=== PATIENT | female | born 1950 | race Caucasian/White ===

== ENCOUNTER → 2018-09-03 15:10 | Outpatient (CLI) | payer MEDICARE, OTHER, SELFPAY ==
--- NOTE | 2018-09-03 15:19 | BI_ITS ---
MAMMOGRAPHY - BILATERAL SCREENING REASON FOR EXAM: Female, 68 years old. Routine annual screening examination. PERTINENT HISTORY: Aunt with breast cancer. TECHNIQUE: Digital bilateral breast niecy (3D mammographic acquisition) in the CC and MLO projections. 2-D mediolateral oblique (MLO) and craniocaudad (CC) views of both breasts were obtained. CAD: Full Field Digital Mammography with Computer Added Detection was performed. COMPARISON: Comparison is made with prior study dated June 16, 2017 and June 06, 2016. FINDINGS: Breast Composition: There are scattered areas of fibroglandular density. There are no dominant masses or suspicious calcifications. Stable benign-appearing bilateral extrarenal lymph nodes. No other significant abnormalities are identified. There has been no significant change since the prior study. BI/SCREENING MAMM (CAD), BILAT IMPRESSION: Stable bilateral screening mammogram. Yearly follow-up mammogram recommended. (A) ASSESSMENT CATEGORY: BIRADS Category 2: Benign. A letter regarding these results will be sent to the patient by the facility within 30 days. Approximately 10% of breast cancers are not detected by mammography. A normal mammogram should not delay biopsy of a clinically suspicious abnormality. [id number] Electronically Signed: Richard Huffman MD at 8:49 EST Tel [phone], Service support ,
--- OUTSIDE RECORDS SUMMARY | 2018-12-06 07:59 | XMS RPT_ITS ---
:1950 Author Organization [facility] Care Team Providers Name Role Phone CLINIC, BRISA SCHREIBER Attending Unavailable Madie Pearson Primary Care Unavailable PROBLEMS PROBLEMS No Problem Records FoundPROCEDURES PROCEDURES No Procedure Records FoundRESULTS RESULTS SCREENING MAMM (CAD), Observed: 09/03/2018 Status: F Source: [place] BIL 3:20 PM [facility] REPOSITORY [facility] Imaging Services [address] [place] [address] SCREENING MAMM (CAD), BILAT MR#: [id number] Acct: [id number] Name: YAMILET POWERS Rep #: [id number] : 1950 F 68 From: Richard Huffman MD PCP: Madie Pearson Status: REG CLI Study: SCREENING MAMM (CAD), BILAT Date of Exam: 09/03/18 Exam# [id number] Ordering Dr: Brisa Alcaraz MAMMOGRAPHY - BILATERAL SCREENING REASON FOR EXAM: Female, 68 years old. Routine annual screening examination. PERTINENT HISTORY: Aunt with breast cancer. TECHNIQUE: Digital bilateral breast niecy (3D mammographic acquisition) in the CC and MLO projections. 2-D mediolateral oblique (MLO) and craniocaudad (CC) views of both breasts were obtained. CAD: Full Field Digital Mammography with Computer Added Detection was performed. COMPARISON: Comparison is made with prior study dated June 16, 2017 and June 06, 2016. FINDINGS: Breast Composition: There are scattered areas of fibroglandular density. There are no dominant masses or suspicious calcifications. Stable benign-appearing bilateral extrarenal lymph nodes. No other significant abnormalities are identified. There has been no significant change since the prior study. BI/SCREENING MAMM (CAD), BILAT IMPRESSION: Stable bilateral screening mammogram. Yearly follow-up mammogram recommended. (A) ASSESSMENT CATEGORY: BIRADS Category 2: Benign. A letter regarding these results will be sent to the patient by the facility within 30 days. Approximately 10% of breast cancers are not detected by mammography. A normal mammogram should not delay biopsy of a clinically suspicious abnormality. [id number] Electronically Signed: Richard Huffman MD at 8:49 EST Tel [phone], Service support , CC: Madie GALAN; BRISA [facility]AMS [facility] [employer]eguard Specialist: Signed ALLERGIES ALLERGIES DATE TYPE / CODE NAME / CODE REACTION SEVERITY SOURCE 05/11/2016 Drug oxycodone Shortness of Unknown [place] Allergy/416 HCl/[id number](RX breath [id number]) Repository 05/11/2016 Drug naproxen Other Unknown [place] Allergy/416 sodium/[id number] Community [id number]([facility] ED CT) Repository 05/11/2016 Drug cetirizine Rash Unknown [place] Allergy/416 HCl/[id number](RX [facility] Repository 05/11/2016 Drug acetaminophen/F00 Shortness of Unknown [place] Allergy/505 4040699(RXNORM) breath Community 684958([facility] ED CT) Repository 05/11/2016 Drug aspartame/[id number] Hives SV [place] Allergy/416 605(RXNORM) Community 292270([facility] ED CT) Repository ENCOUNTERS ENCOUNTERS ADMIT/DISCHARGE ACCOUNT ADMITTING ENCOUNTER LOCATION SOURCE NUMBER CLASS 09/03/2018 [id number] Ambulatory [place] 3 [facility] ing:OPBI Repository PAYERS PAYERS ENCOUNTER GUARANTOR PAYER SUBSCRIBER SOURCE 09/03/2018 YAMILET Quach Primary YAMILET Damon [id number] Insurance:MEDICARE BELLOMYDOB: Community [id number] [address]Cjj: Number: Repository [id number] () Date:2018-07-18 09/03/2018 Secondary YAMILET Damon Insurance:AETNA SR BELLOMYDOB: Community SUPPLEMENT [facility] [id number] Hospital Number: Repository [id number] Date:4755-01-11[facility] SUPPLEMENT [address], [place] [address]GN: 09/03/2018 Tertiary NOT GIVENBRIAN Nelson Insurance:SELF PAY [facility] Number: Effective Repository Date:2018-07-18
== END ==
PROVIDERS: Family Provider Nurse Practitioner Family; PCP Nurse Practitioner Family
DX: Z12.31 Encounter for screening mammogram for malignant neoplasm of breast (principal)
CPT/HCPCS: 77063; 77067

== ENCOUNTER → 2019-09-23 16:05 | Outpatient (CLI) | payer MEDICARE, OTHER, SELFPAY ==
[2016-05-11 17:51] VITALS: BMI 43.3
--- NOTE | 2019-09-23 16:18 | RAD_ITS ---
STUDY: X-RAY CHEST REASON FOR EXAM: Female, 69 years old. Productive cough. Sinus congestion and shortness of breath for 4 days. TECHNIQUE: PA and lateral views of the chest. COMPARISON: August 26, 2014. FINDINGS: The lungs are clear and expanded. There is no demonstrated pleural abnormality. Normal size heart. Normal mediastinum and polo. Normal visualized pulmonary arteries. Normal visualized aortic arch and descending thoracic aorta. There are diffuse degenerative changes of the visualized thoracic spine. There is degenerative osteoarthritis of the bilateral shoulders. There is no demonstrated abnormality of the visualized soft tissue structures of the upper abdomen. RAD/Chest PA and Lateral IMPRESSION: Degenerative changes, as described above. No demonstrated acute cardiopulmonary process. There is no major interval change. Electronically Signed: Jeffrey Zaidi DO at 17:03 EST Tel [phone], Service support ,
== END ==
PROVIDERS: Family Provider Nurse Practitioner Family; PCP Nurse Practitioner Family; Referring Provider Nurse Practitioner Family; Visit Provider Nurse Practitioner Family
DX: R05 Cough (principal)
CPT/HCPCS: 71046

== ENCOUNTER → 2019-10-07 12:39 | Outpatient (CLI) | payer MEDICARE, OTHER, SELFPAY ==
--- NOTE | 2019-10-07 12:43 | RAD_ITS ---
STUDY: SWALLOWING STUDY REASON FOR EXAM: Female, 69 years old. DYSPHAGIA. 1501 IMAGES TECHNIQUE: The examination was performed with Speech Pathology in attendance. Under fluoroscopic observation, the patient ingested thin barium, thick barium, barium pudding, and barium coated cracker. FLUOROSCOPY TIME: 1:46 minutes/seconds. RADIOLOGIST INVOLVEMENT: Radiologist was present and providing direct supervision. COMPARISON: None. FINDINGS: The following was observed during swallowing of the various mixtures of barium: There is hypertrophy of the cricopharyngeus muscle. Thin Barium: There was no evidence of aspiration or laryngeal penetration. Barium Pudding: There was no evidence of aspiration or laryngeal penetration. Barium Coated Cracker: There was no evidence of aspiration or laryngeal penetration. RAD/Swallowing Function w/Video IMPRESSION: Normal tailored barium swallow study. No evidence of increased risk for aspiration. Hypertrophy of the cricopharyngeus muscle. The swallow study findings were discussed with the patient by the speech pathologist at the conclusion of the examination. Please see speech pathology report for more information and recommendations. Electronically Signed: Richard Huffman, at 13:26 EST , Service support ,
--- NOTE | 2019-10-07 12:45 | SP.MBSS_ITS ---
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 MEDICAL HISTORY: Cerebrovascular attack / small vessel infarct of the right subcortical territory, type II diabetes mellitus, dyslipidemia, hypertension, hypothyroidism, obesity. PREVIOUS MODIFIED BARIUM SWALLOW STUDY: None ADDITIONAL OBJECTIVE ASSESSMENT RESULTS: 09/23/2019 chest x-ray revealed degenerative changes; no demonstrated acute cardiopulmonary process; no major interval change. ASSESSMENT PARAMETERS: The Patient participated in a Modified Barium Swallow (MBS) study on 10/07/2019. Dr. Huffman was the radiologist present for this evaluation. This study was recorded in the lateral view and images were sent to PACs for storage. Scoring was completed through each trial using the 8-point Penetration-Aspiration Scale (PAS) and summarized via the Modified Barium Swallow Impairment Profile (MBSImP) and the Bolus Residue Scale (BRS), with severity scoring through the Dysphagia Severity Rating Scale (DSRS) and the Swallowing Performance Scale (SPS), and recommended diet textures through the International Dysphagia Diet Standardisation Initiative (IDDSI). RESULTS OF THE EVALUATION: The Patient presents with mastication and deglutition abilities found to be grossly within functional limits (DSRS: 1; SPS: 2) OBJECTIVE ASSESSMENT OF SWALLOW FUNCTION (QUANTITATIVE ? PER TRIAL): PENETRATION / ASPIRATION SCALE (SCHNEIDER): 1 = does not enter airway 2 = enters airway/above vocal folds/ejected 3 = enters airway/above vocal folds/not ejected 4 = enters airway/contacts vocal folds/ejected 5 = enters airway/contacts vocal folds/not ejected 6 = enters airway/below vocal folds/ejected 7 = enters airway/below vocal folds/not ejected despite effort 8 = enters airway/below vocal folds/no effort PENETRATION / ASPIRATION SCALE (SCORE): Thin liquid - 5 mL tsp.: 1 Thin liquids via cup (single sip): 1 Thin liquids via cup (single sip): 1 Thin liquids via cup (single sip): 1 Thin liquids via straw (sequential swallows): 1 Pudding via spoon: 1 Regular textured cookie: 1 Thin liquids via straw (single sip): 1 OBJECTIVE ASSESSMENT OF SWALLOW FUNCTION (QUANTITATIVE ? AGGREGATE): MODIFIED BARIUM SWALLOW IMPAIRMENT PROFILE (MBSImP) LABIAL SEAL: 0 (of 4) no labial escape TONGUE CONTROL: 2 (of 3) posterior escape < 50% BOLUS PREPARATION / MASTICATION: 0 (of 3) timely and efficient BOLUS TRANSPORT / LINGUAL MOTION: 3 (of 4) repetitive / disorganized motion ORAL RESIDUE: 2 (of 4) residue collection on oral structures INITIATION OF PHARYNGEAL SWALLOW: 1 (of 4) valleculae SOFT PALATE ELEVATION: 0 (of 4) no bolus between soft palate & pharyngeal wall LARYNGEAL ELEVATION: 0 (of 3) complete superior movement / approximation ANTERIOR HYOID EXCURSION: 0 (of 2) complete movement EPIGLOTTIC MOVEMENT: 0 (of 2) complete inversion LARYNGEAL VESTIBULE CLOSURE: 0 (of 2) complete closure PHARYNGEAL STRIPPING WAVE: 0 (of 2) present / complete PE SEGMENT OPENIN (of 3) complete distension / duration; no obstruction TONGUE BASE RETRACTION: 1 (of 4) trace column of contrast PHARYNGEAL RESIDUE: 1 (of 4) trace residue ESOPHAGEAL BOLUS CLEARANCE: could not view BOLUS RESIDUE SCALE (BRS): 1 (of 6) no residue OBJECTIVE ASSESSMENT OF SWALLOW FUNCTION (SEVERITY GRADING): DYSPHAGIA SEVERITY RATING SCALE (DSRS): 1 (within functional limits) SWALLOWING PERFORMANCE SCALE (SPS): 2 (within functional limits) OBJECTIVE ASSESSMENT OF SWALLOW FUNCTION (QUALITATIVE): ORAL PREPARATORY PHASE: sufficient mastication rate and quality; sufficient anterior oral containment during oral manipulation; preserved management of breathing / bolus formation. ORAL TRANSITIONAL PHASE: brief discoordinated lingual movements (undulations) paired with posterior bolus loss of less than 50% during second to last trial, possibly influenced by the Patients distaste for liquid barium; very mild intermittent oral phase swallow onset delay (no more than 2-3 seconds in length) without a functional impact noted under fluoroscopy; oral transitional phase otherwise within functional limits, with sufficient oral clearance and sufficient oral containment across remaining trials. PHARYNGEAL PHASE: no clinically significant findings suggestive of pharyngeal dyssynchrony; appropriate hyolaryngeal excursion and laryngeal vestibule closure / pressure; no signs of pharyngeal dysmotility; no signs of velopharyngeal impairments; no penetration / aspiration throughout trials. ESOPHAGEAL PHASE: no obvious esophageal phase abnormalities observed. 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 INTERVENTION RECOMMENDATIONS AND CONSIDERATIONS: The Patient presents with mastication and deglutition abilities found to be grossly within functional limits. No penetration or aspiration appreciated throughout consistencies trialed. No further skilled speech-language services warranted at this time targeting dysphagia. POST ASSESSMENT EDUCATION: Results and recommendations were discussed with the Patient immediately following MBS completion, with the Patient verbalizing understanding and agreement with all recommendations and education provided. The Patient was able to comprehend information presented upon review and express recommended intake precautions (seated at 90 degrees) to suggest high likelihood of compliance. Provided a brief overview of signs and symptoms of aspiration, with recommendations for the Patient to further discuss any further symptoms with the Patients primary care physician. DIET TEXTURE RECOMMENDATIONS: Will recommend a regular textured (IDDSI: 7), thin liquid diet (IDDSI: 0) diet RECOMMENDED COMPENSATORY STRATEGIES: Reduced bolus volume / rate of ingestion, seated upright at 90 degrees during PO intake, remain upright for 30-60 minutes post meal (GERD precaution) IMAGE COUNT: [id number] Darien Martinez M.A., CCC-BUSINESS TRAINER, CBIS MBSImP Certified, LSVT Certified [facility] Speech-Language Pathology [email or web address]
== END ==
PROVIDERS: Family Provider Nurse Practitioner Family; PCP Nurse Practitioner Family; Visit Provider Nurse Practitioner Family
DX: R13.10 Dysphagia, unspecified (principal)
CPT/HCPCS: 74230; 92611

== ENCOUNTER → 2020-09-08 16:40 | Outpatient (CLI) | payer MEDICARE, OTHER, SELFPAY ==
--- NOTE | 2020-09-08 16:43 | BI_ITS ---
MAMMOGRAPHY - BILATERAL SCREENING REASON FOR EXAM: Female, 70 years old. Routine annual screening examination. PERTINENT HISTORY: Aunt with breast cancer. TECHNIQUE: Digital bilateral breast halle (3D mammographic acquisition) in the CC and MLO projections. 2-D mediolateral oblique (MLO) and craniocaudad (CC) views of both breasts were obtained. CAD: Full Field Digital Mammography with Computer Added Detection was performed. COMPARISON: Comparison is made with prior study dated 09/03/2018 and 06/16/2017. FINDINGS: Breast Composition: The breasts are almost entirely fatty. There are no dominant masses or suspicious calcifications. Stable benign-appearing bilateral axillary lymph nodes. No other significant abnormalities are identified. There has been no significant change since the prior study. BI/SCREEN MAMM (CAD) W/HALLE BILAT IMPRESSION: Stable bilateral screening mammogram. Yearly follow-up mammogram recommended. (A) ASSESSMENT CATEGORY: BIRADS Category 2: Benign. A letter regarding these results will be sent to the patient by the facility within 30 days. Approximately 10% of breast cancers are not detected by mammography. A normal mammogram should not delay biopsy of a clinically suspicious abnormality. [id number] Electronically Signed: Richard Huffman, at 8:13 EST , Service support ,
== END ==
PROVIDERS: PCP Family Medicine; Referring Provider Family Medicine; Visit Provider Family Medicine
DX: Z12.31 Encounter for screening mammogram for malignant neoplasm of breast (principal); Z80.3 Family history of malignant neoplasm of breast
CPT/HCPCS: 77063; 77067

== ENCOUNTER → 2020-11-20 14:01 | Outpatient (CLI) | payer MEDICARE, OTHER, SELFPAY ==
--- NOTE | 2020-11-20 14:04 | CDU_ITS ---
Reason For Study: Retinal artery occlusion Rt. Velocities/BP Lt. Velocities/BP Prox CCA 93/20 cm/sec. Prox CCA 81.4/22.5 cm/sec. Mid CCA 86.5/21.3 cm/sec. Mid CCA 87.5/24.9 cm/sec. Dist CCA 86.5/23.9 cm/sec. Dist CCA 77.7/23.7 cm/sec. Prox ICA 80.9/18.8 cm/sec. Prox ICA 79.1/26.1 cm/sec. Mid ICA 87.6/33.5 cm/sec. Mid ICA 104.7/31.6 cm/sec. Dist ICA 112.6/33.6 cm/sec. Dist ICA 102.8/38.9 cm/sec. Rt. ICA/CCA = 1.3. Lt. ICA/CCA = 1.3. Prox ECA 139.4/18.8 cm/sec. Prox ECA 119.3/20.6 cm/sec. Rt. Vert. 67.9/16.3 cm/sec. Lt. Vert. 67.4/21.2 cm/sec. Right Extracranial There is homogeneous, smooth atherosclerotic plaque noted in the right common carotid artery. There is intimal thickening but no significant atherosclerotic plaque noted in the right internal carotid artery. There is intimal thickening but no significant atherosclerotic plaque noted in the right external carotid artery. Antegrade flow is noted in the right vertebral artery. Left Extracranial There is homogeneous, smooth atherosclerotic plaque noted in the left common carotid artery. There is homogeneous, smooth atherosclerotic plaque noted in the left internal carotid artery. There is intimal thickening but no significant atherosclerotic plaque noted in the left external carotid artery. Antegrade flow is noted in the left vertebral artery. Procedure Carotid Duplex [id number]. This is a Carotid Duplex examination using B-mode, color flow and specral Doppler. Exam performed in department. Interpretation Summary No significant atherosclerotic plaque or stenosis noted in the right internal carotid artery. Mild (<50%) stenosis left extracranial internal carotid. Flow within the vertebral arteries is antegrade bilaterally. Ordering Physician: Gerber Hurd Referring Physician: Suleiman Kidd Performed By: Dulce Rivera RVT
== END ==
PROVIDERS: PCP Family Medicine; Referring Provider Ophthalmology; Visit Provider Ophthalmology
DX: H34.211 Partial retinal artery occlusion, right eye (principal)
CPT/HCPCS: 93880

== ENCOUNTER 2021-05-11 14:56 | Observation (INO) | payer MEDICARE, OTHER, SELFPAY ==
[2021-05-11] VITALS (13 sets, daily range): BP systolic 118–201; BP diastolic 71–90; PULSE 13–98; RESP 12–20; TEMP 35.8–36.8; O2SAT 94–97; BMI 46.4; BMI 46.7; BMI 45.8
--- NOTE | 2021-05-11 15:09 | EKG12_ITS ---
Test Reason : NEURO Blood Pressure : / mmHG Vent. Rate : 093 BPM Atrial Rate : 093 BPM P-R Int : 158 ms QRS Dur : 078 ms QT Int : 344 ms P-R-T Axes : 025 009 006 degrees QTc Int : 427 ms Normal sinus rhythm Nonspecific T wave abnormality Abnormal ECG Confirmed by VIN MOYA, MARTHA ([id number]), manuscript editor ALEXEY MADRID ([id number]) on 05/13/2021 10:00:14 AM Referred By: KATARZYNA Confirmed By:MARTHA BANUELOS MD
--- NOTE | 2021-05-11 15:09 | RAD_ITS ---
History: Neuro deficit, acute, stroke suspected EXAMINATION/TECHNIQUE: XR Chest 1 View: Portable COMPARISON: September 23, 2019 FINDINGS: LINES/DEVICES: None. LUNGS: No consolidation, edema or effusion. No pneumothorax. MEDIASTINUM AND CARDIOVASCULAR STRUCTURES: Cardiac silhouette not enlarged. Central airways and mediastinal contour are unremarkable. BONES AND SOFT TISSUES: Unremarkable. RAD/Chest 1 View IMPRESSION: No radiographic evidence of acute cardiopulmonary disease. No interval change. at 1650 Reported and signed by: Tree Townsend MD Electronically Signed: Tree Townsend MD at 16:49 EDT Tel , Service support ,
--- NOTE | 2021-05-11 15:09 | CT_ITS ---
STUDY: CT HEAD STROKE PROTOCOL W/O CONTRAST INJECTION REASON FOR EXAM: Female, 70 years old. Neuro deficit, acute, stroke suspected RADIATION DOSAGE (If Supplied By Facility): CTDIvol = ( 44.99 ) mGy, DLP = ( 779.24 ) mGycm TECHNIQUE: Transaxial CT imaging of the brain was performed without administration of intravenous contrast material. Individualized dose optimization techniques were used for this CT. COMPARISON: No relevant priors. FINDINGS: Normal soft tissue structures. Normal calvarium. There is mild cerebral atrophy with widening of the extra-axial spaces and ventricular dilatation. Normal white matter tracts of the cerebral hemispheres. Tiny lacuna is seen in the posterior limb of the right internal capsule. Normal brainstem. Normal cerebellum. There is no intracranial hemorrhage. There are no findings of an acute ischemic infarction. Atherosclerotic calcification of the cavernous portions of the internal carotid arteries bilaterally. Normal visualized paranasal sinuses. CT/STROKE Brain/Head without Cont IMPRESSION: Chronic involutional changes of the brain. Tiny lacuna in the posterior limb of the right internal capsule. N.B. : The above Results were Read Back by Richard Huffman MD to Jarod Solomon and understanding confirmed on 05/11/2021 15:31:06 (ET). Electronically Signed: Richard Huffman MD at 15:32 EDT , Service support ,
--- NOTE | 2021-05-11 15:10 | EDS_ITS ---
HPI History of Present Illness Chief Complaint: Neuro S/Sx Informant: patient Onset/Context/Timing Onset: Yesterday (2200 in evening) Context: Sudden Onset (while at rest) Timing: Continuous Quality and Location: Positive for Right Facial Droop; Negative for Slurred Speech, Expressive Aphasia, Receptive Aphasia and Difficulty with Ambulation Current Severity: Moderate Maximum Severity: Moderate Worsened by: Nothing Relieved by: Nothing Associated Symptoms Associated Symptoms: Negative for Headache, Nausea, Vomiting and Chest Pain Narrative Narrative: Patient had a history of a left-sided stroke in the past, currently having a right-sided facial droop, it started last night she presents around 1500 in the afternoon. She takes Xarelto. Stroke was several years ago. It was an ischemic stroke. She denies any recent illness or injury. [facility] Medical History (Updated 05/11/21 @ 17:[address] Jarod Solomon MD) acute on chronic anemia CVA (cerebral infarction) DM2 (diabetes mellitus, type 2) Dyslipidemia HTN (hypertension) Hypothyroidism Obesity Home Medications loratadine [Allergy Relief (loratadine)] 10 mg PO DAILY 08/26/14 [History Last Taken 05/10/21] amlodipine 10 mg PO DAILY 05/11/21 [History Last Taken 05/11/21] aspirin 81 mg PO DAILY@0800 05/11/21 [History Last Taken 05/11/21] atenolol 50 mg PO QHS 05/11/21 [History Last Taken 05/10/21] atorvastatin 20 mg PO DAILY 05/11/21 [History Last Taken 05/11/21] insulin aspart U-100 [Novolog Flexpen U-100 Insulin] 15 unit SUBCUT TID 05/11/21 [History Last Taken 05/11/21] insulin glargine [Basaglar KwikPen U-100 Insulin] 88 unit SUBCUT QHS 05/11/21 [History Last Taken 05/10/21] levothyroxine 50 mcg PO DAILY 05/11/21 [History Last Taken 05/11/21] losartan-hydrochlorothiazide 1 tab PO DAILY 05/11/21 [History Last Taken 0 05/11/21] Allergy/AdvReac Type Severity Reaction Status Date / Time aspartame Allergy Severe Hives Verified 05/11/16 17:50 [From Nutrasweet Aspartame] acetaminophen [From Percocet] Allergy Shortness Verified 05/11/16 17:50 of breath cetirizine HCl [From Zyrtec] Allergy Rash Verified 05/11/16 17:50 oxycodone HCl [From Percocet] Allergy Shortness Verified 05/11/16 17:50 of breath naproxen sodium AdvReac Other Verified 05/11/16 17:50 [From Anaprox] Surgical History Status post total hip replacement, right Social History Smoking Status: Never smoker ROS ROS ED Constitutional Constitutional ED: Denies chills or fever(s) Eyes Eyes: Denies change in vision or diplopia ENT ENT ED: Denies rhinorrhea or sore throat Cardiovascular Cardiovascular: Denies chest pain or palpitations Respiratory/Chest Respiratory/Chest: Denies cough or dyspnea Gastrointestinal Gastrointestinal: Denies abdominal pain, diarrhea, nausea or vomiting Genitourinary Genitourinary ED: Denies dysuria or hematuria Musculoskeletal Musculoskeletal: Denies back pain or neck pain Integumentary Denies abscess or rash Neurologic Neurologic: Reports other Details: Facial droop. Pre-existing deficit is a little slower on the left. ; Denies headache(s) or paresthesias Psychiatric Psychiatric: Denies anxiety or suicidal thoughts EXAM Physical Exam Const Vital Signs: 05/11/21 14:57 05/11/21 15:09 05/11/21 15:14 Temperature 96.4 F L 98 F Temperature Source Temporal Temporal Pulse Rate 13 L 97 98 Respiratory Rate 20 H 12 13 Blood Pressure 195/90 H 201/74 H 195/90 H Blood Pressure Mean 125 116 125 Pulse Ox 96 94 97 Oxygen Delivery Method Room Air Room Air Room Air 05/11/21 15:20 05/11/21 15:39 05/11/21 16:09 Temperature Temperature Source Pulse Rate 92 84 Respiratory Rate 19 H 16 Blood Pressure 146/71 H 143/73 H Blood Pressure Mean 96 96 Pulse Ox 94 Oxygen Delivery Method Room Air Room Air Room Air 05/11/21 16:30 05/11/21 16:33 Temperature Temperature Source Pulse Rate 88 80 Respiratory Rate 19 H 16 Blood Pressure 118/75 118/75 Blood Pressure Mean 89 89 Pulse Ox 95 Oxygen Delivery Method Room Air Positive well nourished, well developed and obese General Appearance ED: well developed and NAD Nutritional Appearance: obese HEENT Reports moist mucous membranes HEENT Narrative: Right facial droop.mild left ptosis. Symmetric elevation of eyebrows and forehead. normocephalic and atraumatic Eyes PERRL and EOMs intact bilaterally Neck full ROM and supple Resp normal respiratory effort and clear to auscultation bilaterally Cardio regular rate, regular rhythm and no murmurs GI non-tender and non-distended Auscultation: normoactive bowel sounds Palpation: soft Back/Spine no CVA tenderness General Back: other FROM Extremity normal to inspection General Extremety ED: Negative for edema, pulses abnormal or tenderness General Extremity: Negative for edema or pulses abnormal Neuro oriented x3, CN's II-XII intact bilaterally and no sensory deficits noted Neuro Narrative: Normal iggryr-wp-pcti and yyce-zq-ablh bilaterally Sensorium / Orientation: awake and alert Motor Exam: strength 5/5 throughout Skin no rashes or lesions noted and no wounds STROKE Vital Signs/Narrative: Vital Signs Temp Pulse Resp BP Pulse Ox 05/11/21 16:33 80 16 118/75 95 05/11/21 16:30 88 19 H 118/75 05/11/21 16:09 84 16 143/73 H 05/11/21 15:39 92 19 H 146/71 H 94 05/11/21 15:14 98 F 98 13 195/90 H 97 05/11/21 15:09 97 12 201/74 H 94 05/11/21 14:57 96.4 F L 13 L 20 H 195/90 H 96 NIHSS Initial: 1a Level of Consciousness: 0 1b LOC Questions (Score 2 if aphasic/stupor): 0 1c LOC Commands (Only score 1st attempt): 0 2 Best Gaze (If aphasic, use reflexive mvmts.): 0 3 Visual: 0 4 Facial Palsy: 1 5 Motor Arm Right (UN = amputation/fusion): 0 5 Motor Arm Left: 0 6 Motor Leg Right: 0 6 Motor Leg Left: 0 7 Limb ataxia (Only + if out of proportion): 0 8 Sensory (Aphasia/stupor=0 or 1, coma=2): 0 9 Best Language: 0 10 Dysarthria (mute, coma=2, intubated=UN): 0 11 Extinction and Inattention (only scored if +): 0 Total Score: 1 MDM MDM MDM Narrative Medical decision making narrative: Work-up is unremarkable except for CT showing a lacunar infarct in the right posterior arm of the internal capsule, I suspect this is probably her old stroke. Her CTA is negative for LVO or significant internal carotid stenosis. Discussed with stroke neurologist examined the patient, agrees with admitting the patient here. Her blood pressure is down to 146/71 from 195/90; on reevaluation later her blood pressure down to 118/75 without treatment. On repeat examination she states nothing is any different. Initially it seemed she had a mild ptosis on the left, but in reality she is having trouble closing the right eye all the way and tightly. However her forehead moves symmetrically and there is no loss of sensation on the forehead. It is possible this is an early Mcnally's palsy, the neurologist agreed with getting an MRI and admitting her for stroke work-up since it is difficult to tell. We try to get a stat MRI here in ER, but the machine is not going to be available for several hours, close to the time when electronic systems technician leaves, so plan will be for inpatient observation and MRI in the morning likely. Lab Data Attestation: I reviewed the patient's lab results. Labs: Laboratory Results - last 24 hr 05/11/21 05/11/21 05/11/21 15:01 15:25 15:25 WBC 9.8 RBC 4.13 L Hgb 11.6 L Hct 36.0 L MCV 87.2 MCH 28.1 MCHC 32.2 RDW Std Deviation 43.4 RDW Coeff of Adarsh 13.4 Plt Count 270 MPV 10.4 Immature Gran % (Auto) 0.500 Neut % (Auto) 69.1 Lymph % (Auto) 21.7 Titus % (Auto) 6.8 Eos % (Auto) 1.4 Baso % (Auto) 0.5 Absolute Neuts (auto) 6.8 Absolute Lymphs (auto) 2.12 Nucleated RBC % 0 PT 13.2 INR 1.1 APTT 23.7 L Sodium Potassium Chloride Carbon Dioxide Anion Gap BUN Creatinine Estim Creat Clear Calc Est GFR (MDRD) Af Amer Est GFR (MDRD) Non-Af BUN/Creatinine Ratio Glucose Calcium Troponin I High Sens POC Glucose 444 H 05/11/21 15:25 WBC RBC Hgb Hct MCV MCH MCHC RDW Std Deviation RDW Coeff of Adarsh Plt Count MPV Immature Gran % (Auto) Neut % (Auto) Lymph % (Auto) Titus % (Auto) Eos % (Auto) Baso % (Auto) Absolute Neuts (auto) Absolute Lymphs (auto) Nucleated RBC % PT INR APTT Sodium 135 L Potassium 3.5 Chloride 102 Carbon Dioxide 26.0 Anion Gap 7 BUN 26 H Creatinine 1.00 Estim Creat Clear Calc 41.99 Est GFR (MDRD) Af Amer 71 Est GFR (MDRD) Non-Af 59 L BUN/Creatinine Ratio 26.1 H Glucose 378 H Calcium 8.7 Troponin I High Sens 11 POC Glucose Radiography Diagnostic Testing: Radiology Impression Brain CT 05/11/21 15:09 IMPRESSION: Chronic involutional changes of the brain. Tiny lacuna in the posterior limb of the right internal capsule. N.B. : The above Results were Read Back by Richard Huffman MD to Jarod Solomon and understanding confirmed on 05/11/2021 15:31:06 (ET). Electronically Signed: Richard Huffman MD at 15:32 EDT , Service support , ADDENDUM: 05/11/21 1539 IMPRESSION: Chronic involutional changes of the brain. Tiny lacuna in the posterior limb of the right internal capsule. N.B. : The above Results were Read Back by Richard Huffman MD to Jarod Solomon and understanding confirmed on 05/11/2021 15:31:06 (ET). Electronically Signed: Richard Huffman MD at 15:32 EDT , Service support , Chest X-Ray 05/11/21 15:09 IMPRESSION: No radiographic evidence of acute cardiopulmonary disease. No interval change. at 1650 Reported and signed by: Tree Townsend MD Electronically Signed: Tree Townsend MD at 16:49 EDT Tel , Service support , Head/Neck CTA 05/11/21 15:15 IMPRESSION: Minimal plaque calcification in the left common carotid artery. No significant stenosis is seen. N.B. : The above Results were Read Back by Richard Huffman MD to Jarod Solomon and understanding confirmed on 05/11/2021 15:38:22 (ET). Electronically Signed: Richard Huffman MD at 15:39 EDT , Service support , ADDENDUM: 05/11/21 1546 IMPRESSION: Minimal plaque calcification in the left common carotid artery. No significant stenosis is seen. N.B. : The above Results were Read Back by Richard Huffman MD to Jarod Solomon and understanding confirmed on 05/11/2021 15:38:22 (ET). Electronically Signed: Richard Huffman MD at 15:39 EDT , Service support , EKG Initial EKG: Attestation: I personally reviewed and interpreted this EKG as follows: Interpretation: Sinus Rhythm, No Acute Injury Pattern and Non-Specific ST Changes Stroke Documentation Questions Stroke Team Activated: Yes Was Patient considered for Endovascular Intervention?: No (Negative CT angiography) IV Alteplase (t-PA) Administered: No (Outside of IV TPA time window) Discharge Plan Triage Chief Complaint: Neuro S/Sx ED Provider: Jarod Solomon Dx/Rx/DC Orders Clinical Impression: Facial droop Prescriptions: No Action loratadine [Allergy Relief (loratadine)] 10 MG tablet 10 mg PO DAILY RF: 0 losartan-hydrochlorothiazide 100-25 mg tablet 1 tab PO DAILY RF: 0 amlodipine 10 mg tablet 10 mg PO DAILY RF: 0 insulin aspart U-100 [Novolog Flexpen U-100 Insulin] 100 unit/mL (3 mL) Insulin Pen 15 unit SUBCUT TID RF: 0 Basaglmarta StantonPen U-100 Insulin 100 unit/mL (3 mL) insulin pen 88 unit SUBCUT QHS RF: 0 atorvastatin 20 mg tablet 20 mg PO DAILY RF: 0 aspirin 81 mg Tablet,Delayed Release (Dr/Ec) 81 mg PO DAILY@0800 RF: 0 levothyroxine 50 mcg tablet 50 mcg PO DAILY RF: 0 atenolol 50 mg tablet 50 mg PO QHS RF: 0 Primary Care Provider: Suleiman Kidd Referrals: Suleiman Kidd DO [Primary Care Provider] - Disposition Disposition: Acute Care Hospital [facility]
--- NOTE | 2021-05-11 15:11 | NURSING ---
1509 STROKE ALERT CALLED
--- NOTE | 2021-05-11 15:15 | CT_ITS ---
STUDY: CTA HEAD AND NECK WITH CONTRAST REASON FOR EXAM: Female, 70 years old. Neuro deficit, acute, stroke suspected RADIATION DOSAGE (If Supplied By Facility): CTDIvol = ( 19 ) mGy, DLP = ( 724.06 ) mGycm TECHNIQUE: CT angiography was performed with a multi-detector CT scanner. Data acquisition was obtained from the skull base through the vertex following intravenous administration of IV 100mL [id number]-370. MIP images were reconstructed from the axial data set. Post-processing of the angiographic images was performed, with multiplanar reformation and 3D reconstruction. Individualized dose optimization techniques were used for this CT. COMPARISON: No relevant priors. FINDINGS: Normal bilateral petrous carotid arteries. There is calcified plaque formation of the right cavernous carotid artery, without a cross-sectional luminal stenosis. There is calcified plaque formation of the left cavernous carotid artery, without a cross-sectional luminal stenosis. Normal right A1 segments of the anterior cerebral artery. Normal left A1 segments of the anterior cerebral artery. Normal intact anterior communicating artery (ACOM). Normal bilateral A2 segments of the anterior cerebral arteries. Normal right M1 and M2 segments of the middle cerebral arteries, with a normal M1 bifurcation. Normal left M1 and M2 segments of the middle cerebral arteries, with a normal M1 bifurcation. Normal right posterior communicating artery (PCOM). Normal left posterior communicating artery (PCOM). Normal bilateral vertebral arteries. Normal basilar artery with a normal basilar bifurcation. The visualized bilateral superior cerebellar (SCA) arteries are normal. Normal bilateral P1, P2 and visualized P3 segments of the posterior cerebral arteries. There is no demonstrated aneurysm of the [place] of [place]. There is no demonstrated abnormality of the visualized brain. AORTIC ARCH: There is atherosclerotic calcific plaque formation of the aortic arch and great vessels arising from the aortic arch, without a hemodynamically significant stenosis. There is a bovine origin of the great vessels with a common origin of the brachiocephalic and left common carotid artery. Normal origin of the left subclavian artery. RIGHT CAROTID ARTERIES: Normal right common carotid artery (CCA). Normal right common carotid bulb. Normal origin of the right internal carotid (ICA) artery without a hemodynamically significant stenosis. Normal visualized cervical portion of the right internal carotid artery. Normal origin of the right external carotid artery (ECA). LEFT CAROTID ARTERIES: There is atherosclerotic plaque formation of the common carotid artery, but without a hemodynamically significant stenosis. Normal left common carotid bulb. Normal origin of the left internal carotid (ICA) artery without a hemodynamically significant stenosis. Normal visualized cervical portion of the left internal carotid artery. Normal origin of the left external carotid artery (ECA). VERTEBRAL ARTERIES: Normal bilateral vertebral arteries. CT/STROKE CTA Head AND Neck W/Con IMPRESSION: Minimal plaque calcification in the left common carotid artery. No significant stenosis is seen. N.B. : The above Results were Read Back by Richard Huffman MD to Jarod Solomon and understanding confirmed on 05/11/2021 15:38:22 (ET). Electronically Signed: Richard Huffman MD at 15:39 EDT , Service support ,
[2021-05-11 15:16] LABS: Bedside Glucose 444 mg/dL (70-110)
[2021-05-11 15:31] LABS: Absolute Lymphocyte Count 2.12 X10^3/uL (0.83-4.51); Absolute Neutrophil Count 6.8 X10^3/uL (2.0-7.7); Basophil# 0.05 X10^3/uL; Basophil% 0.5 % (0-1); Eosinophil# 0.14 X10^3/uL; Eosinophils% 1.4 % (0-5); Hemoglobin 11.6 g/dL (12.0-15.0); Lymphocyte # 2.12 X10^3/ul (0.83-4.51); Lymphocyte % 21.7 % (19-41); Mean Corp Hgb Conc 32.2 g/dL (32-36); Mean Corpuscular Hgb 28.1 pg (27.0-32.0); Mean Corpuscular Volume 87.2 fL (81-99); Mean Platelet Vol. 10.4 fl (6.2-12.0); Monocyte# 0.67 X10^3/uL; Monocyte% 6.8 % (0-10); NRBC Flagged by Analyzer 0 % (0-5); Neutrophil # 6.76 X10^3/uL (2.7-7.7); Neutrophil % 69.1 % (47-70); Platelet Count 270 K/mm3 (150-450); RBC Distribution Width CV 13.4 % (11.6-14.6); RBC Distribution Width SD 43.4 fl (35.1-43.9); Red Blood Count 4.13 M/mm3 (4.2-5.4); White Blood Count 9.8 K/mm3 (4.4-11.0)
[2021-05-11 15:42] LABS: International Normalized Ratio 1.1; Partial Thromboplast Time 23.7 Seconds (24.1-36.2); Prothrombin Time (Protime)PT. 13.2 SECONDS (11.7-14.9)
[2021-05-11 16:00] LABS: Anion Gap 7 (5-15); BUN 26 mg/dL (7-18); BUN/Creat Ratio 26.1 RATIO (10-20); Calcium,Total 8.7 mg/dL (8.5-10.1); Chloride 102 mmol/L (98-107); EST Glomerular Filtration Rate 59 mL/min (>60); Est Glom Filt Rate - Afr Amer 71 mL/min (>60); Estimated Creatinine Clearance 41.99 ml/min; Glucose 378 mg/dL (74-106); Potassium 3.5 mmol/L (3.5-5.1); Sodium Level 135 mmol/L (136-145); Troponin-I HS 11 pg/mL (3.0-54.0)
--- NOTE | 2021-05-11 16:11 | CHAPLAIN ---
Type of Pastoral Visit ___ Initial Visit ___ Follow-up Visit ___ On-call Visit ___ General Patient Visit ___ Spiritual Assessment ___ Family Conference ___ Bereavement _x__ Rapid Response ___ Code Blue ___ Other (describe below) Pastoral Care Referral From ___ Patient ___ Family ___ Nurse ___ Physician ___ Home And Family Living Professor ___ Thermometer Maker _x__ Other (describe below) Sacrament/Intervention _x__ Active listening ___ Anointing ___ Lutheran ___ Bereavement ___ Communion ___ Ilda exploration ___ ___ Life review _x__ Prayer ___ Reconciliation ___ Sacrament of Sick ___ Supportive presence ___ Wedding ___ Other (describe below) Pastoral Comments patient was a stroke alert that this automotive electrical helper came to ED for assistance; pt is known by our HRO who requested support; met patient and family members; prayer and presence given for support
--- NOTE | 2021-05-11 16:38 | CM.ED ---
SW Note: Referral Source: Stroke Alert Referral Reason: Stroke Alert SW responded to Stroke alert. SW spoke to patient's daughter and . Provided emotional support. No needs or issues voiced by family. SW remains available for support or any additional needs that arise. Plan: To be determined Leanne ROPER
--- NOTE | 2021-05-11 17:22 | NURSING ---
116 OBS SCARLETT ACUTE RT FACIAL DROOP
--- NOTE | 2021-05-11 18:01 | PCM.HP.STD ---
HPI - General General Date of Admission: 05/11/21 Date of Service: 05/11/21 Chief Complaint: right facial drooping HPI Narrative YAMILET POWERS, is a 70 F who presents to the emergency room at [facility] with a chief complaint of right facial drooping, she is also had some problems with closing her right eyelid. Patient denies any focal weakness, she denies any speech difficulty or any visual disturbances. Patient stated her symptoms started about 10 PM on 05/10/2021. Patient has had a history of a stroke with some left-sided residual weakness chiefly in her leg. A stroke alert was called when the patient reached the emergency room, she was seen by teleneurology who did not feel she warranted TPA administration. Patient CT showed an old lacunar infarct in the posterior limb of the right internal capsule. Labs were remarkable for a glucose of 378, BUN was 26 and hemoglobin was 11.6. 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 MRI of the brain will be ordered, echocardiogram will not be obtained-she had an echocardiogram during her last stroke work-up and it showed no evidence of right to left intra-atrial shunt. [facility] Medical History (Updated 05/11/21 @ 18:13 by Annabella Araya) acute on chronic anemia CPAP (continuous positive airway pressure) dependence CVA (cerebral infarction) DM2 (diabetes mellitus, type 2) Dyslipidemia HTN (hypertension) Hypothyroidism Murmur Obesity Sleep apnea Home Medications loratadine [Allergy Relief (loratadine)] 10 mg PO DAILY 08/26/14 [History Last Taken 05/10/21] amlodipine 10 mg PO DAILY 05/11/21 [History Last Taken 05/11/21] aspirin 81 mg PO DAILY@0800 05/11/21 [History Last Taken 05/11/21] atenolol 50 mg PO QHS 05/11/21 [History Last Taken 05/10/21] atorvastatin 20 mg PO DAILY 05/11/21 [History Last Taken 05/11/21] insulin aspart U-100 [Novolog Flexpen U-100 Insulin] 15 unit SUBCUT TID 05/11/21 [History Last Taken 05/11/21] insulin glargine [Basaglar KwikPen U-100 Insulin] 88 unit SUBCUT QHS 05/11/21 [History Last Taken 05/10/21] levothyroxine 50 mcg PO DAILY 05/11/21 [History Last Taken 05/11/21] losartan-hydrochlorothiazide 1 tab PO DAILY 05/11/21 [History Last Taken 05/11/21] Allergy/AdvReac Type Severity Reaction Status Date / Time aspartame Allergy Severe Hives Verified 05/11/16 17:50 [From Nutrasweet Aspartame] acetaminophen [From Percocet] Allergy Shortness Verified 05/11/16 17:50 of breath cetirizine HCl [From Zyrtec] Allergy Rash Verified 05/11/16 17:50 oxycodone HCl [From Percocet] Allergy Shortness Verified 05/11/16 17:50 of breath naproxen sodium AdvReac Other Verified 05/11/16 17:50 [From Anaprox] Surgical History Status post total hip replacement, right Social History Smoking Status: Never smoker ROS Constitutional Constitutional: Denies anorexia, change in weight, fatigue, fever(s), night sweats or weakness Eyes Eyes: Denies blurry vision, change in vision, discharge from eye(s) or eye pain ENT HEENT: Denies abnormal hearing, dysphagia, ear pain, headache(s) or hearing loss Cardiovascular Cardiovascular: Denies chest pain, claudication, edema or palpitations Respiratory/Chest Respiratory/Chest: Denies cough, dyspnea, hemoptysis, productive cough, shortness of breath at rest or shortness of breath with exertion Gastrointestinal Gastrointestinal: Denies abdominal pain, constipation, diarrhea, dyspepsia, hematemesis, hematochezia, melena, nausea or vomiting Genitourinary Genitourinary: Denies dysuria, hematuria, urinary frequency, urinary hesitancy, urinary incontinence or urinary urgency Musculoskeletal Musculoskeletal: Denies back pain, joint pain, joint stiffness, joint swelling, myalgias or neck pain Neurologic Neurologic: Reports other Details: Right facial drooping, difficulty closing right eyelid ; Denies abnormal gait, abnormal speech, confusion, dizziness, focal weakness, headache(s), loss of vision, numbness, other visual disturbances, paresthesias, syncope or tingling Psychiatric Psychiatric: Denies anxiety, cognitive impairment, depression, irritability, mood swings or suicidal ideation Endocrine Endocrinology: Denies change in body appearance, cold intolerance, excessive sweating, heat intolerance, polydipsia or polyuria Hematologic/Lymphatic Hematologic/Lymphatic: Denies none, anemia, easy bleeding, easy bruising or lymphadenopathy Allergic/Immunologic Allergic/Immunologic: Denies rhinitis, urticaria, eczemia or asthma Vital Signs Vital Signs Vital Signs: 05/11/21 14:57 05/11/21 15:09 05/11/21 15:14 Temperature 96.4 F L 98 F Temperature Source Temporal Temporal Pulse Rate 13 L 97 98 Respiratory Rate 20 H 12 13 Blood Pressure 195/90 H 201/74 H 195/90 H Blood Pressure Mean 125 116 125 Blood Pressure Source Blood Pressure Position Blood Pressure Location Pulse Ox 96 94 97 Oxygen Delivery Method Room Air Room Air Room Air 05/11/21 15:20 05/11/21 15:39 05/11/21 16:09 Temperature Temperature Source Pulse Rate 92 84 Respiratory Rate 19 H 16 Blood Pressure 146/71 H 143/73 H Blood Pressure Mean 96 96 Blood Pressure Source Blood Pressure Position Blood Pressure Location Pulse Ox 94 Oxygen Delivery Method Room Air Room Air Room Air 05/11/21 16:30 05/11/21 16:33 05/11/21 17:50 Temperature 98.0 F Temperature Source Temporal Pulse Rate 88 80 79 Respiratory Rate 19 H 16 20 H Blood Pressure 118/75 118/75 135/78 H Blood Pressure Mean 89 89 97 Blood Pressure Source Blood Pressure Position Blood Pressure Location Pulse Ox 95 95 Oxygen Delivery Method Room Air Room Air 05/11/21 18:01 Temperature 98.1 F Temperature Source Oral Pulse Rate 78 Respiratory Rate 16 Blood Pressure 144/80 H Blood Pressure Mean 101 Blood Pressure Source Monitor Blood Pressure Position Semi-Fowlers Blood Pressure Location Right Forearm Pulse Ox 94 Oxygen Delivery Method Room Air Weight Weight: 116 kg Body Mass Index (BMI) 46.7 Physical Exam Const alert, oriented x3, no apparent distress and healthy appearing General Appearance: cooperative, well kempt and well developed Orientation / Consciousness: awake, oriented to person, oriented to place and oriented to time HEENT normocephalic, head/scalp atraumatic, hearing grossly normal bilaterally and moist oral mucous membranes Eyes PERRL, EOMs intact bilaterally and conjunctivae normal Neck nuchal rigidity, supple, no JVD, thyroid normal and no carotid bruits General: trachea midline Resp normal respiratory effort, no retractions, no use of accessory muscles and clear to auscultation bilaterally Auscultation: Negative for rales, rhonchi or wheezes Cardio regular rate, regular rhythm, S1 normal heart sound, S2 normal heart sound, no murmurs, no rub and no gallops GI normal to inspection, nondistended, normoactive bowel sounds, soft to palpation, non-tender and non-distended Extremity normal to inspection and no clubbing, cyanosis or edema Skin no rashes or lesions noted and no wounds General Skin Exam: no breakdown Neuro oriented x3, CN's II-XII intact bilaterally, no focal motor deficits and no sensory deficits noted Neuro Narrative: Patient has right sided facial drooping noted at the mouth, patient has difficulty closing her right eyelid Sensorium / Orientation: awake and alert Speech: speech normal Psych thought process normal and affect normal Results Lab / Micro Data Result Diagrams: 05/11/21 15:25 05/11/21 15:25 Labs: Laboratory Results - last 24 hr 05/11/21 15:01: POC Glucose 444 H 05/11/21 15:25: WBC 9.8, RBC 4.13 L, Hgb 11.6 L, Hct 36.0 L, MCV 87.2, MCH 28.1, MCHC 32.2, RDW Std Deviation 43.4, RDW Coeff of Adarsh 13.4, Plt Count 270, MPV 10.4, Immature Gran % (Auto) 0.500, Neut % (Auto) 69.1, Lymph % (Auto) 21.7, Guthrie % (Auto) 6.8, Eos % (Auto) 1.4, Baso % (Auto) 0.5, Absolute Neuts (auto) 6.8, Absolute Lymphs (auto) 2.12, Nucleated RBC % 0 05/11/21 15:25: PT 13.2, INR 1.1, APTT 23.7 L 05/11/21 15:25: Sodium 135 L, Potassium 3.5, Chloride 102, Carbon Dioxide 26.0, Anion Gap 7, BUN 26 H, Creatinine 1.00, Estim Creat Clear Calc 41.99, Est GFR (MDRD) Af Amer 71, Est GFR (MDRD) Non-Af 59 L, BUN/Creatinine Ratio 26.1 H, Glucose 378 H, Calcium 8.7, Troponin I High Sens [address] 05/11/21 15:09 IMPRESSION: Chronic involutional changes of the brain. Tiny lacuna in the posterior limb of the right internal capsule. N.B. : The above Results were Read Back by Richard Huffman MD to Jarod Solomon and understanding confirmed on 05/11/2021 15:31:06 (ET). Electronically Signed: Richard Huffman MD at 15:32 EDT , Service support , ADDENDUM: 05/11/21 1539 IMPRESSION: Chronic involutional changes of the brain. Tiny lacuna in the posterior limb of the right internal capsule. N.B. : The above Results were Read Back by Richard Huffman MD to Jarod Solomon and understanding confirmed on 05/11/2021 15:31:06 (ET). Electronically Signed: Richard Huffman MD at 15:32 EDT , Service support , Chest X-Ray 05/11/21 15:09 IMPRESSION: No radiographic evidence of acute cardiopulmonary disease. No interval change. at 1650 Reported and signed by: Tree Townsend MD Electronically Signed: Tree Townsend MD at 16:49 EDT Tel , Service support , Head/Neck CTA 05/11/21 15:15 IMPRESSION: Minimal plaque calcification in the left common carotid artery. No significant stenosis is seen. N.B. : The above Results were Read Back by Richard Huffman MD to Jarod Solomon and understanding confirmed on 05/11/2021 15:38:22 (ET). Electronically Signed: Richard Huffman MD at 15:39 EDT , Service support , ADDENDUM: 05/11/21 1546 IMPRESSION: Minimal plaque calcification in the left common carotid artery. No significant stenosis is seen. N.B. : The above Results were Read Back by Richard Huffman MD to Jarod Solomon and understanding confirmed on 05/11/2021 15:38:22 (ET). Electronically Signed: Richard Huffman MD at 15:39 EDT , Service support , Assessment & Plan Assessment/Plan (1) Facial droop: PLAN: 1. Right facial droop-patient will be placed in observation status on PCU, she will undergo an MRI of the brain, neurochecks will be carried out, she will be seen by PT OT and speech therapy. Patient will be placed on Plavix 75 mg daily until the results of the MRI is noted, she will remain on a statin and a baby aspirin which she takes at home. #2 type 2 diabetes-blood sugars will be monitored #3 morbid obesity #4 cerebral vascular disease #5 hyperlipidemia #6 hypertension-patient will remain on her present medications #7 hypothyroidism Charges/Coding Visit Charges OBSV E&M: 77915 Initial observation care L3
[2021-05-11] MEDS: Insulin Lispro 100 UNIT/ML INSULN.PEN 15 UNIT SC (18:40)
[2021-05-11] MEDS: Insulin Lispro 100 UNIT/ML INSULN.PEN SC ×2 (18:42→21:09)
--- NOTE | 2021-05-11 18:49 | PCS.PANDOC ---
PANDEMIC DOCUMENTATION INITIATED: Date: 05/03/2021 Time: 190
[2021-05-11 18:50] LABS: Bedside Glucose 309 mg/dL (70-110)
[2021-05-11] MEDS: Atenolol 50 MG Tablet PO (21:10)
[2021-05-11 21:31] LABS: Bedside Glucose 252 mg/dL (70-110)
[2021-05-12] VITALS (8 sets, daily range): BP systolic 119–150; BP diastolic 68–83; PULSE 58–78; RESP 12–17; TEMP 36.7–36.8; O2SAT 91–95; BMI 45.8
[2021-05-12 01:51] LABS: Bedside Glucose 178 mg/dL (70-110)
[2021-05-12] MEDS: Levothyroxine 50 MCG Tablet PO (06:39)
[2021-05-12] MEDS: Insulin Lispro 100 UNIT/ML INSULN.PEN SC ×2 (08:07→12:25)
[2021-05-12] MEDS: Insulin Lispro 100 UNIT/ML INSULN.PEN 15 UNIT SC ×2 (08:07→12:25)
[2021-05-12 08:15] LABS: Bedside Glucose 231 mg/dL (70-110)
[2021-05-12] MEDS: LORazepam 1 MG Tablet 2 MG PO (08:27)
--- NOTE | 2021-05-12 09:36 | ECHOCS_ITS ---
Reason For Study: TIA/CVA Procedure This was a 2D Doppler, Color Flow transthoracic echocardiogram. Tecnically difficult study due to patients body habitus. Bubble study deferred due to previous negative result.Contrast injection performed. The study was technically difficult. Contrast injection was performed. Exam performed portable in patient room. Left Ventricle Based upon the 2D echocardiographic and contrast enhanced images obtained there appears to be grossly normal left ventricular size, wall motion, and systolic function. The estimated ejection fraction is 65 %. No evidence for diastolic dysfunction. Right Ventricle Normal RV size. Normal systolic function. Atria The left atrium is mildly enlarged. Normal right atrium. No doppler evidence for ASD. Mitral Valve There is no mitral annular calcification. Normal mitral valve. Trivial mitral valve insufficiency. Tricuspid Valve Normal tricuspid valve. Trivial tricuspid valve insufficiency. Unable to estimate RV systolic pressure/pulmonary artery pressure due to technically difficult study. Aortic Valve The aortic valve is not well visualized. Pulmonic Valve The pulmonic valve is not well visualized. Great Vessels Normal sized aortic root. Pericardium/Pleural No pericardial effusion. Medication Diluted definity 3ml given slow IV push to enhance endocardial definition. MMode/2D Measurements & Calculations LVIDd: 4.2 cm IVSd: 1.2 cm Ao root diam: 3.1 cm LVIDs: 2.6 cm LVPWd: 1.1 cm FS: 39.7 % LAV(MOD-bp): 30.8 ml LA A4 area: 12.6 cm2 RA A4 area: 11.1 cm2 LAV(MOD-bp) Indexed: 14.6 ml/m2 LAV(MOD-sp2): 30.7 ml LAV(MOD-sp4): 28.0 ml Time Measurements MV dec time: 0.21 sec Doppler Measurements & Calculations MV E max gato: 69.1 cm/sec Lat Peak E' Gato: 10.4 cm/sec Med Peak E' Gato: 7.4 cm/sec MV A max gato: 104.9 cm/sec E/E' lat: 6.6 E/E' med: 9.3 MV E/A: 0.66 MV V2 max: 117.5 cm/sec MV P1/2t max gato: 79.9 cm/sec Ao V2 max: 191.6 cm/sec MV max P.5 mmHg MV P1/2t: 95.2 msec Ao max P.7 mmHg MV V2 mean: 64.0 cm/sec MV dec slope: 245.9 cm/sec2 Ao V2 mean: 126.2 cm/sec MV mean P.9 mmHg Ao mean P.3 mmHg MV V2 VTI: 29.1 cm MVA(P1/2t): 2.3 cm2 Ao V2 VTI: 40.3 cm LV V1 max: 129.5 cm/sec LV V1 max P.7 mmHg LV V1 mean P.9 mmHg LV V1 mean: 77.3 cm/sec LV V1 VTI: 31.7 cm ECHO/Echo Complete W/ Contrast Interpretation Summary The study was technically difficult. Contrast injection was performed. Based upon the 2D echocardiographic and contrast enhanced images obtained there appears to be grossly normal left ventricular size, wall motion, and systolic function. The estimated ejection fraction is 65 %. The left atrium is mildly enlarged. Trivial mitral valve insufficiency. Trivial tricuspid valve insufficiency. Unable to estimate RV systolic pressure/pulmonary artery pressure due to techni ben difficult study. No evidence for diastolic dysfunction. Ordering Physician: Sepideh Monk Referring Physician: Suleiman Kidd Performed By: Wild Hartmann RCS
--- NOTE | 2021-05-12 09:40 | TELEMED_ITS ---
[facility] has confirmed receipt of a request for visit. This document confirms receipt of the order initiating the consult. To find the results of the consultation, please view the patient's reports for the scanned Telemed Consult.
--- NOTE | 2021-05-12 10:00 | MRI_ITS ---
EXAM: MR HEAD WITHOUT INTRAVENOUS CONTRAST : 1950 CLINICAL INDICATION: right facial droop -- TECHNIQUE: Multiplanar and multisequence MR images of the brain were obtained without intravenous contrast. This report was created using [employer] report generation technology. COMPARISON: CT brain May 11, 2021 FINDINGS: BRAIN AND EXTRA-AXIAL SPACES: Chronic lacunar infarct within the right basal ganglia again noted. Several small foci of increased T2 signal intensity within the cerebral white consistent with chronic microvascular disease. There is no abnormal diffusion weighted signal intensity to suggest an acute ischemic event. Normal vascular flow voids are noted. No intra- or extra-axial hemorrhage. No intracranial mass or mass effect. Posterior fossa structures are unremarkable. Ventricles are appropriate for age. No hydrocephalus. Basal cisterns are patent. SELLA: Unremarkable. Normal sella turcica, pituitary gland, infundibular stalk, optic chiasm and hypothalamus. AUDITORY SYSTEM: Unremarkable. The internal auditory canals are patent. BONES/JOINTS: Unremarkable. No discrete lytic or blastic abnormalities. SINUSES: Unremarkable as visualized. Clear. MASTOID AIR CELLS: Unremarkable as visualized. Clear. ORBITS: Unremarkable as visualized. Both globes, extraocular muscles, optic nerves and retrobulbar fat appear unremarkable. VASCULATURE: Unremarkable as visualized. Normal flow voids in the major intracranial circulation. MRI/Brain without Contrast IMPRESSION: 1. No evidence of acute ischemia. 2. Chronic microvascular changes. at 1038 Reported and signed by: Tree Townsend MD Electronically Signed: Tree Townsend MD at 10:37 EDT Tel , Service support ,
--- NOTE | 2021-05-12 10:15 | NURSING ---
PT TOLERATED MRI WITHOUT INCIDENT. DENIED COMPLAINTS.
[2021-05-12] MEDS: Atorvastatin Calcium 20 MG Tablet PO (10:42)
[2021-05-12] MEDS: Aspirin E.C. 81 MG Tablet PO (10:43)
[2021-05-12] MEDS: Clopidogrel Bisulfate 75 MG Tablet PO (10:43)
[2021-05-12] MEDS: hydroCHLOROthiazide 25 MG Tablet PO (10:43)
[2021-05-12] MEDS: Losartan Potassium 100 MG Tablet PO (10:43)
[2021-05-12] MEDS: amLODIPine 10 MG Tablet PO (10:43)
[2021-05-12] MEDS: Loratadine 10 MG Tablet PO (10:43)
[2021-05-12 13:15] LABS: Bedside Glucose 235 mg/dL (70-110)
--- NOTE | 2021-05-12 13:18 | PCM.DC ---
Discharge Instructions Diet Discharge Diet: No restrictions Activity Discharge Activity: Return to Normal Activity Weight Bearing Status: Weight bearing as tolerated Dressing / Incision Call your doctor if you observe: Fever of 101 or Higher, Numbness or Tingling, Shortness of breath, Dizziness, Chest pain, Increased palpitations (irregular heartbeat) and Calf discomfort Follow Up Care Please Follow Up With: Primary care provider When: Within the next two weeks. Test Results: Test results from this visit will be discussed in further detail at your follow-up appointment, if applicable. Discharge Plan Admission Admit Date/Time: 05/12/21 06:17 Primary Reason for Your Visit: Right facial droop Attending Provider: Sepideh Monk Primary Care Provider: Suleiman Kidd Discharge Orders/Prescriptions Prescriptions: Continued loratadine [Allergy Relief (loratadine)] 10 MG tablet 10 mg PO DAILY RF: 0 losartan-hydrochlorothiazide 100-25 mg tablet 1 tab PO DAILY RF: 0 amlodipine 10 mg tablet 10 mg PO DAILY RF: 0 insulin aspart U-100 [Novolog Flexpen U-100 Insulin] 100 unit/mL (3 mL) Insulin Pen 15 unit SUBCUT TID RF: 0 Basaglar KwikPen U-100 Insulin 100 unit/mL (3 mL) insulin pen 88 unit SUBCUT QHS RF: 0 atorvastatin 20 mg tablet 20 mg PO DAILY RF: 0 aspirin 81 mg Tablet,Delayed Release (Dr/Ec) 81 mg PO DAILY@0800 RF: 0 levothyroxine 50 mcg tablet 50 mcg PO DAILY RF: 0 atenolol 50 mg tablet 50 mg PO QHS RF: 0 Referrals / Follow Up: Suleiman Kidd DO [Primary Care Provider] - Within 2 Weeks Disposition Disposition (needs filled in before D/C Order can be placed): Home, Self Care
--- NOTE | 2021-05-12 13:22 | PCM.DC.SUM ---
Documented by User: Leon YOUNG 05/12/21 16:22 Providers Date of Admission: 05/12/21 Primary Care Physician: Dr. Suleiman Kidd DO Reason For Visit: ACUTE R FACIAL DROOP Diagnosis Discharge Diagnosis (1) Facial droop: Status: Acute Code(s): R29.810 - Facial weakness Medications at Discharge Home Medications loratadine [Allergy Relief (loratadine)] 10 mg PO DAILY 08/26/14 Basaglar KwikPen U-100 Insulin 88 unit SUBCUT QHS 05/11/21 amlodipine 10 mg PO DAILY 05/11/21 aspirin 81 mg PO DAILY@0800 05/11/21 atenolol 50 mg PO QHS 05/11/21 atorvastatin 20 mg PO DAILY 05/11/21 insulin aspart U-100 [Novolog Flexpen U-100 Insulin] 15 unit SUBCUT TID 05/11/21 levothyroxine 50 mcg PO DAILY 05/11/21 losartan-hydrochlorothiazide 1 tab PO DAILY 05/11/21 Hospital Course Summary of Care Provided Minutes Spent on Discharge: 35 Hospital Course: 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 SOC consult obtained and recommendations as below. Brain MRI did not demonstrate any evidence of acute stroke. Head/neck CT-A did not demonstrate any significant stenosis. Echocardiogram obtained and demonstrated normal LV systolic function size and wall motion, an estimated EF of 65% and indeterminate diastolic dysfunction and RVSP. Steroids would not be initiated on discharge given the patient's ongoing difficulty with controlling blood sugars on her current diabetic regimen. A detailed discussion of the risk/benefits was had with the patient, and patient understands and is agreeable to all. Aspirin will be continued, Plavix will be discontinued and patient is to follow-up with her primary care provider within the next 2 weeks. 2) DM2 Continue home diabetic regimen, follow-up with primary care provider within the next 2 weeks. 3) morbid obesity Patient weight 250.9 pounds with a BMI of 45.8. Weight loss advised. 4) hyperlipidemia Continue statin. 5) HTN Continue home BP regimen. 6) hypothyroidism Continue levothyroxine. 7) CAD Continue aspirin, amlodipine, atenolol, statin, losartan. Patient seen by Leon Spicer PA-C, under the supervision of Dr. Monk. Physical Exam Narrative Patient is a 70-year-old female comfortably resting in bed, alert and orient x3. Patient still has ongoing right sided upper and lower facial droop, without any other focal logical deficits or weakness. Denies chest pain, shortness of breath, palpitations, hemoptysis, sputum production, fever, chills, N/V/D. Const alert, oriented x3 and no apparent distress HEENT normocephalic, head/scalp atraumatic and hearing grossly normal bilaterally Eyes PERRL, EOMs intact bilaterally and conjunctivae normal Neck no lymphadenopathy, supple and no JVD Resp normal respiratory effort, no retractions, no use of accessory muscles and clear to auscultation bilaterally Cardio regular rate, regular rhythm, no murmurs and no JVD GI normal to inspection, nondistended, normoactive bowel sounds, soft to palpation and non-tender Extremity normal to inspection, full ROM and no clubbing, cyanosis or edema Extremity Narrative: No focal weakness in the upper or lower extremities. Skin no rashes or lesions noted, no wounds and skin turgor normal Neuro CN's II-XII intact bilaterally Neuro Narrative: Patient still has ongoing right-sided facial weakness, although patient is still able to wrinkle forehead. No other focal neurological deficits present. Psych affect normal Weight / BMI Weight Weight: 250 lb 9.6 oz Body Mass Index (BMI) 45.8 ABG / Lab / Microbiology Data Result Diagrams: 05/11/21 15:25 05/11/21 15:25 Laboratory: Laboratory Results - last 24 hr 05/11/21 15:01: POC Glucose 444 H 05/11/21 15:25: WBC 9.8, RBC 4.13 L, Hgb 11.6 L, Hct 36.0 L, MCV 87.2, MCH 28.1, MCHC 32.2, RDW Std Deviation 43.4, RDW Coeff of Adarsh 13.4, Plt Count 270, MPV 10.4, Immature Gran % (Auto) 0.500, Neut % (Auto) 69.1, Lymph % (Auto) 21.7, [place] % (Auto) 6.8, Eos % (Auto) 1.4, Baso % (Auto) 0.5, Absolute Neuts (auto) 6.8, Absolute Lymphs (auto) 2.12, Nucleated RBC % 0 05/11/21 15:25: PT 13.2, INR 1.1, APTT 23.7 L 05/11/21 15:25: Sodium 135 L, Potassium 3.5, Chloride 102, Carbon Dioxide 26.0, Anion Gap 7, BUN 26 H, Creatinine 1.00, Estim Creat Clear Calc 41.99, Est GFR (MDRD) Af Amer 71, Est GFR (MDRD) Non-Af 59 L, BUN/Creatinine Ratio 26.1 H, Glucose 378 H, Calcium 8.7, Troponin I High Sens 11 05/11/21 18:39: POC Glucose 309 H 05/11/21 21:06: POC Glucose 252 H 05/12/21 01:43: POC Glucose 178 H 05/12/21 08:06: POC Glucose 231 H 05/12/21 12:21: POC Glucose 235 H Radiography Diagnostic Testing: Radiology Impression Brain CT 05/11/21 15:09 IMPRESSION: Chronic involutional changes of the brain. Tiny lacuna in the posterior limb of the right internal capsule. N.B. : The above Results were Read Back by Richard Huffman MD to Jarod Solomon and understanding confirmed on 05/11/2021 15:31:06 (ET). Electronically Signed: Richard Huffman MD at 15:32 EDT , Service support , ADDENDUM: 05/11/21 1539 IMPRESSION: Chronic involutional changes of the brain. Tiny lacuna in the posterior limb of the right internal capsule. N.B. : The above Results were Read Back by Richard Huffman MD to Jarod Solomon and understanding confirmed on 05/11/2021 15:31:06 (ET). Electronically Signed: Richard Huffman MD at 15:32 EDT , Service support , Chest X-Ray 05/11/21 15:09 IMPRESSION: No radiographic evidence of acute cardiopulmonary disease. No interval change. at 1650 Reported and signed by: Tree Townsend MD Electronically Signed: Tree Townsend MD at 16:49 EDT Tel , Service support , Head/Neck CTA 05/11/21 15:15 IMPRESSION: Minimal plaque calcification in the left common carotid artery. No significant stenosis is seen. N.B. : The above Results were Read Back by Richard Huffman MD to Jarod Solomon and understanding confirmed on 05/11/2021 15:38:22 (ET). Electronically Signed: Richard Huffman MD at 15:39 EDT , Service support , ADDENDUM: 05/11/21 1546 IMPRESSION: Minimal plaque calcification in the left common carotid artery. No significant stenosis is seen. N.B. : The above Results were Read Back by Richard Huffman MD to Jarod Solomon and understanding confirmed on 05/11/2021 15:38:22 (ET). Electronically Signed: Richard Huffman MD at 15:39 EDT , Service support , Echocardiogram 05/12/21 09:36 Interpretation Summary The study was technically difficult. Contrast injection was performed. Based upon the 2D echocardiographic and contrast enhanced images obtained there appears to be grossly normal left ventricular size, wall motion, and systolic function. The estimated ejection fraction is 65 %. The left atrium is mildly enlarged. Trivial mitral valve insufficiency. Trivial tricuspid valve insufficiency. Unable to estimate RV systolic pressure/pulmonary artery pressure due to technically difficult study. No evidence for diastolic dysfunction. Ordering Physician: Sepideh Monk Referring Physician: Suleiman Kidd Performed By: Wild Hartmann, [facility] Brain MRI 05/12/21 10:00 IMPRESSION: 1. No evidence of acute ischemia. 2. Chronic microvascular changes. at 1038 Reported and signed by: Tree Townsend MD Electronically Signed: Tree Townsend MD at 10:37 EDT Tel , Service support , D/C Instructions Discharge Diet: No restrictions Weight Bearing Status: Weight bearing as tolerated Call your doctor if you observe: Fever of 101 or Higher, Numbness or Tingling, Shortness of breath, Dizziness, Chest pain, Increased palpitations (irregular heartbeat) and Calf discomfort Please Follow Up With: Primary care provider When: Within the next two weeks. Meaningful Use Info Meaningful Use Diagnoses (Choose all that apply): None applicable Discharge Plan Admission Admit Date/Time: 05/12/21 06:17 Primary Reason for Your Visit: Right facial droop Attending Provider: Sepideh Monk Primary Care Provider: Suleiman Kidd Discharge Orders/Prescriptions Prescriptions: Continued loratadine [Allergy Relief (loratadine)] 10 MG tablet 10 mg PO DAILY RF: 0 losartan-hydrochlorothiazide 100-25 mg tablet 1 tab PO DAILY RF: 0 amlodipine 10 mg tablet 10 mg PO DAILY RF: 0 insulin aspart U-100 [Novolog Flexpen U-100 Insulin] 100 unit/mL (3 mL) Insulin Pen 15 unit SUBCUT TID RF: 0 Basaglar KwikPen U-100 Insulin 100 unit/mL (3 mL) insulin pen 88 unit SUBCUT QHS RF: 0 atorvastatin 20 mg tablet 20 mg PO DAILY RF: 0 aspirin 81 mg Tablet,Delayed Release (Dr/Ec) 81 mg PO DAILY@0800 RF: 0 levothyroxine 50 mcg tablet 50 mcg PO DAILY RF: 0 atenolol 50 mg tablet 50 mg PO QHS RF: 0 Referrals / Follow Up: Suleiman Kidd DO [Primary Care Provider] - Within 2 Weeks Disposition Disposition (needs filled in before D/C Order can be placed): Home, Self Care Documented by User: Dr. Sepideh Monk DO 05/12/21 16:22 Providers Date of Admission: 05/12/21 Reason For Visit: ACUTE R FACIAL DROOP Medications at Discharge Home Medications loratadine [Allergy Relief (loratadine)] 10 mg PO DAILY 08/26/14 Basaglar KwikPen U-100 Insulin 88 unit SUBCUT QHS 05/11/21 amlodipine 10 mg PO DAILY 05/11/21 aspirin 81 mg PO DAILY@0800 05/11/21 atenolol 50 mg PO QHS 05/11/21 atorvastatin 20 mg PO DAILY 05/11/21 insulin aspart U-100 [Novolog Flexpen U-100 Insulin] 15 unit SUBCUT TID 05/11/21 levothyroxine 50 mcg PO DAILY 05/11/21 losartan-hydrochlorothiazide 1 tab PO DAILY 05/11/21 Hospital Course Procedures 2-D Echocardiogram and - (MRI brain) Summary of Care Provided Minutes Spent on Discharge: 39 Hospital Course: Mrs. Bach is a 70-year-old white female who presented to the emergency department at [facility] on 05/11/2021 with a chief complaint of right facial droop. She denied any other focal weakness, speech difficulty or visual disturbances on presentation. She stated that her symptoms started approximately 10 AM on 07/10/2021 and had progressed. She has history of a stroke with some residual left-sided weakness in her leg but no other deficits and she states that she is at baseline with regards to this. A stroke alert was called upon presentation to the ED and she was seen by teleneurology who did not feel she warranted tPA administration. Her CT of her brain showed an old lacunar infarct in the posterior limb of the right internal capsule but was otherwise negative. Her labs were fairly unremarkable other than some hyperglycemia which has been an issue with her periodically. She was admitted to PCU and her symptoms remained stable. Her MRI was negative for any acute changes. Her echocardiogram showed an EF of 65%, mild left atrial enlargement and she has history of negative bubble study in the past. She was seen by neurology while here and they felt that her symptoms were consistent with Mcnally's palsy despite the sparing of the top portion of the facial nerve. She was discharged without steroids given her significant issues with blood sugar control after her options were discussed. She will follow up with her PCP in 1 to 2 weeks. She was instructed to tape her eyelid down during the day and at night if she got to the point where she was not able to completely close her eye. On discharge she was able to close her eye. Discharge diagnoses Right-sided Mcnally's palsy History of stroke Hypertension Hyperlipidemia DM-2 uncontrolled Hypothyroidism Morbid obesity Physical Exam Narrative Patient reports her symptoms are really no different than they were in the last 24 hours. Const alert, oriented x3 and no apparent distress Constitutional Narrative: Older white female sitting up in bed, appears older than stated age, nontoxic General Appearance: cooperative, comfortable, well kempt, well developed and appears older than stated age Nutritional Appearance: morbidly obese HEENT normocephalic, head/scalp atraumatic, hearing grossly normal bilaterally and moist oral mucous membranes Eyes PERRL and EOMs intact bilaterally Neck no lymphadenopathy and supple Neck Narrative: Trachea midline, no thyroid enlargement noted, short thick neck Resp normal respiratory effort, no retractions, no use of accessory muscles and clear to auscultation bilaterally Auscultation: Negative for crackles, rales, rhonchi or wheezes Cardio regular rate, regular rhythm, S1 normal heart sound, S2 normal heart sound, no murmurs, no rub, no gallops, no clicks and no JVD GI normal to inspection, nondistended, normoactive bowel sounds, soft to palpation, non-tender and non-distended Extremity normal to inspection and no clubbing, cyanosis or edema Skin no rashes or lesions noted, no wounds, skin turgor normal and no jaundice Neuro oriented x3 and moves all extremities Neuro Narrative: Patient with right-sided facial nerve paralysis with forehead sparing with all other cranial nerves being intact Sensorium / Orientation: awake and alert Speech: speech normal Motor Exam: strength 5/5 throughout Psych affect normal ABG / Lab / Microbiology Data Result Diagrams: 05/11/21 15:25 05/11/21 15:25 Discharge Plan Admission Admit Date/Time: 05/12/21 06:17 Primary Reason for Your Visit: Right facial droop Attending Provider: Sepideh Monk Primary Care Provider: Suleiman Kidd Discharge Orders/Prescriptions Prescriptions: Continued loratadine [Allergy Relief (loratadine)] 10 MG tablet 10 mg PO DAILY RF: 0 losartan-hydrochlorothiazide 100-25 mg tablet 1 tab PO DAILY RF: 0 amlodipine 10 mg tablet 10 mg PO DAILY RF: 0 insulin aspart U-100 [Novolog Flexpen U-100 Insulin] 100 unit/mL (3 mL) Insulin Pen 15 unit SUBCUT TID RF: 0 Basaglar KwikPen U-100 Insulin 100 unit/mL (3 mL) insulin pen 88 unit SUBCUT QHS RF: 0 atorvastatin 20 mg tablet 20 mg PO DAILY RF: 0 aspirin 81 mg Tablet,Delayed Release (Dr/Ec) 81 mg PO DAILY@0800 RF: 0 levothyroxine 50 mcg tablet 50 mcg PO DAILY RF: 0 atenolol 50 mg tablet 50 mg PO QHS RF: 0 Referrals / Follow Up: Suleiman Kidd DO [Primary Care Provider] - Within 2 Weeks Disposition Disposition (needs filled in before D/C Order can be placed): Home, Self Care Charges/Coding Visit Charges Inpatient E&M: 00271 Disch Hosp
--- NOTE | 2021-05-12 13:42 | PHA.DC.MR ---
Pharmacy Service has performed discharge medication reconciliation for this patient. The patient's discharge medication list was reviewed for discrepancies and discrepancies were resolved. Home Medications loratadine [Allergy Relief (loratadine)] 10 mg PO DAILY 08/26/14 Basaglar KwikPen U-100 Insulin 88 unit SUBCUT QHS 05/11/21 amlodipine 10 mg PO DAILY 05/11/21 aspirin 81 mg PO DAILY@0800 05/11/21 atenolol 50 mg PO QHS 05/11/21 atorvastatin 20 mg PO DAILY 05/11/21 insulin aspart U-100 [Novolog Flexpen U-100 Insulin] 15 unit SUBCUT TID 05/11/21 levothyroxine 50 mcg PO DAILY 05/11/21 losartan-hydrochlorothiazide 1 tab PO DAILY 05/11/21
--- NOTE | 2021-05-12 13:51 | CASEMGMT ---
SW did not complete a PHQ 9 with patient as she did not have a Stroke or TIA. Babs Valdivia JOURNALISM INTERN REINALDO
== END 2021-05-12 13:21 | disposition home or self-care (01) ==
LOC: ED 17:02 → PCU 17:11
PROVIDERS: Admitting Provider Internal Medicine; Emergency Provider Emergency Medicine; PCP Family Medicine; Visit Provider Internal Medicine
DX: G51.0 Bell's palsy (principal); E11.65 Type 2 diabetes mellitus with hyperglycemia; E78.5 Hyperlipidemia, unspecified; E03.9 Hypothyroidism, unspecified; I10 Essential (primary) hypertension; E66.01 Morbid (severe) obesity due to excess calories; R29.701 NIHSS score 1; I69.354 Hemiplegia and hemiparesis following cerebral infarction affecting left non-dominant side; G47.30 Sleep apnea, unspecified; I25.10 Atherosclerotic heart disease of native coronary artery without angina pectoris; Z68.42 Body mass index [BMI] 45.0-49.9, adult; Z79.899 Other long term (current) drug therapy; Z79.4 Long term (current) use of insulin; Z79.82 Long term (current) use of aspirin
CPT/HCPCS: 70450; 70496; 70498; 70551; 71045; 80048; 82962; 84484; 85025; 85610; 85730; 92610; 93005; 93306; 99218; 99285; Q9957; Q9967; A4216; C8929; G0378; J3490

== ENCOUNTER 2021-11-19 12:50 | Outpatient (CLI) | payer MEDICARE, OTHER, SELFPAY ==
--- NOTE | 2021-11-19 12:55 | BI_ITS ---
MAMMOGRAPHY - BILATERAL SCREENING REASON FOR EXAM: Female, 71 years old. Routine annual screening examination. PERTINENT HISTORY: Aunt with breast cancer. TECHNIQUE: Digital bilateral breast halle (3D mammographic acquisition) in the CC and MLO projections. 2-D mediolateral oblique (MLO) and craniocaudad (CC) views of both breasts were obtained. CAD: Full Field Digital Mammography with Computer Added Detection was performed. COMPARISON: Comparison is made with prior study dated 09/08/2020 and 09/03/2018. FINDINGS: Breast Composition: The breasts are almost entirely fatty. There are no dominant masses or suspicious calcifications. Stable small benign-appearing bilateral axillary lymph nodes. No other significant abnormalities are identified. There has been no significant change since the prior study. BI/SCRN MAMM (CAD)W/HALLE BILAT IMPRESSION: Stable bilateral screening mammogram. Yearly follow-up mammogram recommended. (A) ASSESSMENT CATEGORY: BIRADS Category 2: Benign. A letter regarding these results will be sent to the patient by the facility within 30 days. Approximately 10% of breast cancers are not detected by mammography. A normal mammogram should not delay biopsy of a clinically suspicious abnormality. [id number] Electronically Signed: Richard Huffman MD at 14:44 EST ,
== END 2021-11-19 23:59 | disposition home or self-care (01) ==
PROVIDERS: PCP Family Medicine; Visit Provider Family Medicine
DX: Z12.31 Encounter for screening mammogram for malignant neoplasm of breast (principal); Z80.3 Family history of malignant neoplasm of breast
CPT/HCPCS: 77063; 77067

== ENCOUNTER → 2022-07-12 | Outpatient (CLI) | payer MEDICARE, OTHER, SELFPAY ==
--- NOTE | 2022-07-12 14:48 | BD_ITS ---
STUDY: DUAL ENERGY X-RAY ABSORPTIOMETRY / DXA REASON FOR EXAM: Female, 72 years old. [id number] TECHNIQUE: Bone Mineral Density (BMD) measurements of lumbar spine and left hip were obtained. COMPARISON: None. FINDINGS: Lumbar Spine (L1-L4): g/cm2 (1.352) / T-score (2.8) / Z-score (4.9) Findings are suggestive of normal bone density with a low fracture risk. Left Femur Total: g/cm2 (1.208) / T-score (2.2) / Z-score (3.7) Left Femoral Neck: g/cm2 (0.981) / T-score (1.2) / Z-score (3.0) BD/Dexa Bone Density Study IMPRESSION: The patient is considered normal as outlined below according to World Milind Organization (WHO) criteria with a low fracture risk. Reference Information: The T-score is the number of standard deviations above or below the standard which is normal for young adults at their peak bone mineral density. The World Health Organization (WHO) interprets the T-scores as follows: Above -1 Normal bone density Between -1 and -2.5 Osteopenia Equal to / or below -2.5 Osteoporosis As a practical clinical guideline, osteopenia may be graded as follows: Mild -1 through -1.5 Moderate -1.6 through -2.0 Severe -2.1 through -2.4 The Z-score is the number of standard deviations above or below age-matched controls. A Z-score of less than -1.5 would be considered abnormal. References: 1. NIH Osteoporosis and Related Bone Diseases www osteo.org 2. International Society for Clinical Densitometry www iscd.org 3. National Osteoporosis Foundation www nof.org Electronically Signed: Richard Huffman MD at 14:18 EDT ,
== END | disposition home or self-care (01) ==
LOC: OPBD 14:40
PROVIDERS: PCP Family Medicine; Visit Provider Family Medicine
DX: Z78.0 Asymptomatic menopausal state (principal)
CPT/HCPCS: 77080

== ENCOUNTER 2024-01-10 13:54 | Outpatient (RCR) | payer MEDICARE, SELFPAY | END 2024-01-16 23:59 | LOC: NS 13:54 | PROVIDERS: PCP Family Medicine; Visit Provider Orthopaedic Surgery | DX: Z71.3 Dietary counseling and surveillance (principal); E66.9 Obesity, unspecified; Z68.42 Body mass index [BMI] 45.0-49.9, adult; E11.9 Type 2 diabetes mellitus without complications | CPT/HCPCS: 97802 ==

== ENCOUNTER 2024-02-28 13:56 | Outpatient (RCR) | payer MEDICARE, SELFPAY | END 2024-03-17 23:59 | LOC: NS 13:56 | PROVIDERS: PCP Family Medicine; Referring Provider Orthopaedic Surgery; Visit Provider Orthopaedic Surgery | DX: Z71.3 Dietary counseling and surveillance (principal); E66.9 Obesity, unspecified; Z68.42 Body mass index [BMI] 45.0-49.9, adult; E11.9 Type 2 diabetes mellitus without complications | CPT/HCPCS: 97803 ==

== ENCOUNTER → 2024-07-03 | Outpatient (CLI) | payer MEDICARE, SELFPAY ==
--- NOTE | 2024-07-03 12:54 | BI_ITS ---
MAMMOGRAPHY - BILATERAL SCREENING 3-D TOMOSYNTHESIS REASON FOR EXAM: Female, 74 years old. SCREENING PERTINENT HISTORY: No significant family history. TECHNIQUE: 2-D mammograms and 3-D Tomosynthesis of the breast (s) were performed. CAD was performed. COMPARISON: 11/19/2021 FINDINGS: The breast composition is composed of scattered fibroglandular density. Scattered benign calcifications are seen. No dense spiculated masses or suspicious microcalcifications are identified. No architectural distortion is identified. There is no skin thickening or retraction. There has been no significant change since the prior study. BI/SCRN MAMM (CAD)W/HALLE BILAT IMPRESSION: No mammographic signs of malignancy. Routine yearly mammograms recommended. ASSESSMENT CATEGORY: BIRADS Category 1: Negative. A letter regarding these results will be sent to the patient by the facility within 30 days. FOLLOW UP RECOMMENDATION: Yearly follow up mammogram recommended. (A) Approximately 10% of breast cancers are not detected by mammography. A normal mammogram should not delay biopsy of a clinically suspicious abnormality. Electronically Signed: Bernardo Rios MD at 14:01 EDT ,
== END | disposition home or self-care (01) ==
LOC: OPBI 12:52
PROVIDERS: PCP Physician Assistant; Referring Provider Physician Assistant; Visit Provider Physician Assistant
DX: Z12.31 Encounter for screening mammogram for malignant neoplasm of breast (principal)
CPT/HCPCS: 77063; 77067